=== PATIENT | male | born 1990 | race Caucasian/White ===

== ENCOUNTER 2019-04-17 19:15 | Observation (INO) ==
[2019-04-17] MEDS ORDERED: *HR* LORazepam 2 MG/ML VIAL IM PRN (19:24)
[2019-04-17] MEDS ORDERED: *HR* LORazepam 1 MG TABLET PO PRN (19:24)
[2019-04-17] MEDS ORDERED: traZODone 50 MG TABLET PO PRN (19:24)
[2019-04-17] MEDS ORDERED: Haloperidol Lactate 5 MG/ML VIAL IM PRN (19:24)
[2019-04-17] MEDS ORDERED: MOM Conc 10 ML UD.LIQ PO PRN (19:24)
[2019-04-17] MEDS ORDERED: Acetaminophen 325 MG TABLET PO PRN (19:24)
[2019-04-17] MEDS ORDERED: Mag Hydrox/Al Hydrox/Simeth 30 ML UDC PO PRN (19:24)
[2019-04-17] MEDS ORDERED: hydrOXYzine pamoate 25 MG CAPSULE PO PRN (19:24)
[2019-04-18 09:57] VITALS: BP 137/97
== END 2019-04-18 13:05 | disposition home or self-care (01) ==
LOC: INTOOBSV 19:15 → 1ANU 19:15
PROVIDERS: ADMIT Psychiatry & Neurology Psychiatry; ATTEND Psychiatry & Neurology Psychiatry